=== PATIENT | female | born 1995 | race Caucasian/White ===

== ENCOUNTER 2022-02-21 09:39 | Emergency (ER) | payer OTHER ==
[~2022-02-21] VITALS: Ht 165.1 cm; Wt 54.4 kg
[2022-02-21 09:48] VITALS: BP 106/65
--- NOTE | 2022-02-21 10:00 | NUR ---
BIBS for c/o "left thumbnail injury/nail. Rates pain 5/10. Will continue to monitor the patient.
[2022-02-21] MEDS ORDERED: LIDOCAINE 1% INJ 50 ML MDV IJ ONE (10:16)
--- NOTE | 2022-02-21 11:18 | NUR ---
Patient discharged to home in stable condition. Written and verbal after care instructions given. Patient verbalizes understanding of instruction.
== END 2022-02-21 11:19 | disposition home or self-care (01) ==
LOC: ER 09:39
DX: S61.303A Unspecified open wound of left middle finger with damage to nail, initial encounter (principal); W22.8XXA Striking against or struck by other objects, initial encounter; Y93.89 Activity, other specified; Y92.89 Other specified places as the place of occurrence of the external cause; Y99.8 Other external cause status
CPT/HCPCS: 11730; 99284; J3490